=== PATIENT | male | born 1980 | race Two or more races ===

== ENCOUNTER 2025-08-26 10:46 | Emergency (ER) | payer OTHER, SELFPAY ==
--- NOTE | ~2025-08-26 | XR_ITS ---
CLINICAL HISTORY: lumbar back pain 3 views lumbar spine Comparison: None provided Findings: Normal vertebral body alignment. No acute fractures or dislocation. There is loss of height at the L5-S1 disc space with focal loss of inferior endplate articular surface. Correlate clinically for possible changes of discitis or osteomyelitis, better evaluated with contrast-enhanced MRI. IMPRESSION: Possible degenerative changes at L5-S1. If there is clinical or laboratory concern for discitis with osteomyelitis, appropriate further evaluation recommended. This document has been electronically signed by: Jonathan Sanderson MD on 08/26/2025 13:08:42
[2025-08-26 10:49] VITALS: BP 160/87; PULSE 63; RESP 20; TEMP 36.2; O2SAT 98; BMI 36.8
--- NOTE | 2025-08-26 10:56 | ED_ITS ---
HPI - General Adult General Chief complaint: Back Pain/Injury Stated complaint: back pain, no injury Time Seen by Provider: 08/26/25 11:34 Source: patient Mode of arrival: ambulatory Limitations: no limitations History of Present Illness ED Provider: SEAN Hirsch HPI narrative: This is a 44-year-old male who presents to the emergency department with left- sided low back pain with radiation into left lower extremity unable to tell me exactly where it goes into his left lower extremity he tells me in the entire left lower extremity. Mostly in the front. He reports shooting pains down his left leg. This has been going on 3 weeks however today it was pretty significant. Seems to be worse with positional changes and going from sitting to standing. Rotation also seems to be an issue. He denies associated trauma. No recent falls. Denies saddle anesthesias, fevers, chills, headache, vision changes, urinary and bowel incontinence/retention, recent illness. No history of IVDA Related Data Previous Rx's ?Medication ?Instructions ?Recorded ketorolac 10 mg tablet 10 mg PO TID PRN pain 5 days #15 08/26/25 tabs prednisone 20 mg tablet 40 mg (2 x 20 mg) PO DAILY 5 days 08/26/25 #10 tabs Allergies Allergy/AdvReac Type Severity Reaction Status Date / Time No Known Allergies Allergy Verified 08/26/25 10:52 Review of Systems 2 Review of Systems: Yes all other systems are reviewed and are negative [facility] Past Medical History Attestation statement: The following information was validated with the patient. Source: old records reviewed and nursing notes reviewed Physical Exam ED Exam Exam: Appearance: Alert.? Oriented X3.? No acute distress.? Head: Normocephalic, atraumatic, no step-offs or deformities Eyes: Pupils equal, round and reactive to light.? ENT: Pharynx normal.? Neck: Normal inspection.? Neck supple.? CVS: Normal heart rate and rhythm.? Pulses normal.? Respiratory: No respiratory distress.? Breath sounds normal.? Abdomen: Soft and nontender.? Skin: Skin warm and dry.? Normal skin color.? Normal skin turgor.? Extremities: No lower extremity edema.? No calf ttp. 5/5 strength to bilateral upper and lower extremities Back: Lumbosacral tenderness to palpation to paraspinous muscles particularly on the left. Positive straight leg raise. Uncomfortable when going from sitting to standing. No saddle anesthesias. Ambulating steady gait normal coordination Neuro: Oriented X 3.? No motor deficit.? No sensory deficit. CN 2-12 intact Vital Signs: Vital Signs - 24 hr 08/26/25 10:49 08/26/25 14:14 08/26/25 15:24 Temperature 97.2 F 97.6 F Pulse Rate 63 65 65 Respiratory Rate 20 16 16 Blood Pressure 160/87 H 115/49 L 115/49 L Pulse Oximetry 98 98 98 Oxygen Delivery Method Room Air Room Air Room Air BMI result Body Mass Index 36.8 vss Course Course Course Narrative: Medical screening exam performed. Please refer to detailed history, exam, evaluation, and management by primary provider. Patient with pain consistent with a sciatica. No bowel or bladder incontinence. JS Reevaluation(s) Reevaluation #1: CBC unremarkable. ESR within normal range. Chemistry no acute findings needing intervention. CRP 0.34 again within normal range. Patient's pain is not out of proportion to exam. He responded well to Toradol. Although x-rays suggest to rule out diskitis/osteomyelitis I do not suspect this at this time. There is no midline tenderness at L4-L5 tenderness is mostly over paraspinous muscles particularly on the left. Patient does not have a fever he is not tachycardic there is no signs of infection. Very low suspicion that this would be infectious in origin. I did advise patient to return with any new or worsening symptoms such as fevers, worsening pain, midline pain, difficulties with gait, urinary or bowel incontinence/retention, saddle anesthesias. Time: 15:12 Reevaluation #2: Educated patient on diagnosis and treatment plan, answered all question, patient verbalizes understanding. At this time patient will be discharged home, advised to return with new or worsening symptoms. Educated on worrisome signs and symptoms and when to return. At this time I feel comfortable discharge home. Time: 15:13 Medications Administered Discontinued Medications Generic Name Dose Route Start Last Admin Trade Name Freq PRN Reason Stop Dose Admin Ketorolac Tromethamine 30 mg 08/26/25 12:01 08/26/25 12:09 Ketorolac Tromethamine 30 Mg/Ml Vial IM 08/26/25 12:02 30 mg ONCE ONE Administration Medical Decision Making Medical Decision Making [facility] Narrative: 44-year-old male presents with left lower back pain with radiation to left lower extremity anteriorly mostly Physical exam significant for Lumbosacral tenderness to palpation to paraspinous muscles particularly on the left. Positive straight leg raise. Uncomfortable when going from sitting to standing. No saddle anesthesias. Ambulating steady gait normal coordination History and physical exam concerning for an L4-L5 radiculopathy versus facet mediated pain. Unlikely cauda equina, cord compression, epidural abscess. I do not suspect pathological fractures. Plan lumbar x-ray, medication. Differential Diagnosis Differential Diagnoses: The differential diagnosis associated with the presentation includes (History and physical exam concerning for an L4-L5 radiculopathy versus facet mediated pain. Unlikely cauda equina, cord compression, epidural abscess. I do not suspect pathological fractures.) Admission/Observation Consideration of admission/observation: Escalation of care including admission/observation considered Lab Data 08/26/25 14:21 08/26/25 14:21 Labs: Lab Results 08/26/25 Range/Units 14:21 WBC 6.9 (4.8-10.8) X10*3/uL RBC 4.90 (4.60-5.80) X10*6/uL Hgb 14.9 (14.0-18.0) g/dl Hct 42.0 (42.0-52.0) % MCV 85.7 (80.0-98.0) fL MCH 30.4 (27.0-33.0) pg MCHC 35.5 (31.0-36.0) g/dl RDW 12.8 (11.0-16.0) % Plt Count 228 (160-400) X10*3/uL MPV 9.7 (9.4-12.4) fL Immature Gran % (Auto) 0.6 H (0.0-0.4) % Neut % (Auto) 48.9 (45-73) % Lymph % (Auto) 41.7 H (20-40) % [place] % (Auto) 6.9 (2-11) % Eos % (Auto) 1.6 (0-4) % Baso % (Auto) 0.3 (0-2) % Lymph # (Auto) 2.9 (1.2-4.9) X10*3/uL [place] # (Auto) 0.5 (0.1-1.2) X10*3/uL Eos # (Auto) 0.1 (0.0-0.4) X10*3/uL Baso # (Auto) 0.0 (0.0-0.2) X10*3/uL Abs Immat Gran (auto) 0.04 H (0.00-0.03) X10*3/uL Absolute Neuts (auto) 3.4 (2.0-8.3) x10*3/uL Absolute Nucleated RBC 0.000 (0.0-0.012) X10*3/uL Nucleated RBC % (auto) 0.0 (0.0-0.2) /100WBC ESR 9 (0-15) MM/HR Sodium 137 (135-145) mmol/L Potassium 4.7 (3.3-5.1) mmol/L Chloride 106 (96-108) mmol/L Carbon Dioxide 25 (22-29) mmol/L Anion Gap 11 L (12-20) BUN 17 H (9-16) mg/dL Creatinine 1.00 (0.5-1.4) mg/dL Estim Creat Clear Calc 115.6 Estimated GFR > 60 Random Glucose 90 (60-115) mg/dL Calcium 9.3 (8.4-10.2) mg/dL Total Bilirubin 0.3 (0.0-1.0) mg/dL AST 25 (5-37) U/L ALT 32 (0-40) U/L Alkaline Phosphatase 54 (39-117) U/L C-Reactive Protein 0.34 (< or = 0.50) mg/dL Total Protein 7.5 (6.5-8.0) g/dL Albumin 4.3 (3.5-5.0) g/dL Independent Interpretation I performed an independent interpretation of an: Plain X-Ray Radiology Impression Discussion of test interpretation with radiology: I have reviewed the radiologist's reading. Prescription Management I considered prescription management with: Other (toradol, prednisone ) Chronic Conditions Patient?s care impacted by: Other (obesity ) Critical Care Time Critical Care Time Critical Care Time: Yes Total Critical Care Time: 35 Attestation: I attest to this time spent taking care of the patient, obtaining history, physical, reviewing labs, imaging, treatment of patients condition +/- specialist/hospitalist consult +/- procedure Discharge Plan Discharge Clinical Impression: Lumbar radiculopathy Patient Disposition: Home, Self-Care Instructions: Lumbar Radiculopathy (ED) Additional Instructions: Take your medications as prescribed. If you were prescribed antibiotics today, it is important that you take your medication to their entirety, do not skip any doses, do not finish them early. Follow-up with your primary care provider this week. Return to the emergency department with new or worsening symptoms. Such as fevers, chills, chest pain, shortness of breath, nausea, vomiting, dizziness, headache, vision changes, lethargy In case of emergency call 911 Toradol has been sent to your pharmacy, you tolerated this well in the department. Please take this as prescribed do not take this with ibuprofen, or other NSAIDs, do not mix this with alcohol. Side effects of this medication including increased risk for bleeding and possible kidney injury. No infection suspected return with new or worsening pain, fevers, chills, heart racing, pain to the midline of your back, changes in urinary or bowel habits. Findings: Normal vertebral body alignment. No acute fractures or dislocation. There is loss of height at the L5-S1 disc space with focal loss of inferior endplate articular surface. Correlate clinically for possible changes of discitis or osteomyelitis, better evaluated with contrast-enhanced MRI. IMPRESSION: Possible degenerative changes at L5-S1. If there is clinical or laboratory concern for discitis with osteomyelitis, appropriate further evaluation recommended. Prescriptions: New prednisone 20 mg tablet 40 mg PO DAILY 5 Days Qty: 10 0RF ketorolac 10 mg tablet 10 mg PO TID PRN (Reason: pain) 5 Days Qty: 15 0RF Rx Instructions: Tolerated IM or IV in department Referrals: Physician,None [Primary Care Provider, Medical] Stand Alone Forms: Work/School Release Interventions: ED Discharge Assessment Last Done: 08/26/25 15:24 Discharge Date/Time: 08/26/25 15:25 Print Language: Khmer
[2025-08-26 14:14] VITALS: BP 115/49; PULSE 65; RESP 16; O2SAT 98
[2025-08-26 14:26] LABS: MANUAL DIFF FLAG NO
[2025-08-26 14:27] LABS: Hematocrit 42.0 % (42.0-52.0); Hemoglobin 14.9 g/dl (14.0-18.0); Imm Gran Abs Auto 0.04 X10*3/uL (0.00-0.03); Imm Gran Pct Auto 0.6 % (0.0-0.4); Lymphocytes Absolute Auto 2.9 X10*3/uL (1.2-4.9); Mean Corpuscular HGB Conc 35.5 g/dl (31.0-36.0); Mean Corpuscular Hemoglobin 30.4 pg (27.0-33.0); Mean Corpuscular Volume 85.7 fL (80.0-98.0); NRBC Abs Auto 0.000 X10*3/uL (0.0-0.012); NRBC Pct Auto 0.0 /100WBC (0.0-0.2); Platelet Count 228 X10*3/uL (160-400); Red Blood Count 4.90 X10*6/uL (4.60-5.80); White Blood Count 6.9 X10*3/uL (4.8-10.8)
[2025-08-26 14:42] LABS: Alanine Aminotransferase 32 U/L (0-40); Albumin Level 4.3 g/dL (3.5-5.0); Alkaline Phosphatase 54 U/L (39-117); Anion Gap 11 (12-20); Aspartate Amino Transferase 25 U/L (5-37); Blood Urea Nitrogen 17 mg/dL (9-16); Calcium 9.3 mg/dL (8.4-10.2); Carbon Dioxide 25 mmol/L (22-29); Chloride 106 mmol/L (96-108); Creatinine Clr Calc Pharmacy 115.6; Estimated Glomerular Filt Rate > 60; Potassium 4.7 mmol/L (3.3-5.1); Sodium 137 mmol/L (135-145); Total Protein 7.5 g/dL (6.5-8.0)
[2025-08-26 15:24] VITALS: BP 115/49; PULSE 65; RESP 16; TEMP 36.4; O2SAT 98
== END 2025-08-26 15:25 | disposition home or self-care (01) ==
PROVIDERS: Physician Assistant; Emergency Provider Emergency Medicine
DX: M54.16 Radiculopathy, lumbar region (principal); M54.50 Low back pain, unspecified; M79.605 Pain in left leg
CPT/HCPCS: 36415; 72100; 80053; 85025; 85652; 86140; 96372; 99284; J1885

== ENCOUNTER → 2025-08-26 12:00 | Outpatient (BNV) | payer OTHER, SELFPAY | PROVIDERS: Emergency Provider Emergency Medicine; Visit Provider Specialist | DX: M54.50 Low back pain, unspecified (principal) | CPT/HCPCS: 72100 ==